=== PATIENT | female | born 1945 | race Caucasian/White ===

== ENCOUNTER 2018-12-23 15:32 | Emergency (ER) | payer OTHER, MEDICARE ==
[~2018-12-23] VITALS: Ht 152.4 cm; Wt 63.6 kg
[2018-12-23 16:57] VITALS: BP 145/65
[2018-12-23] MEDS ORDERED: orphenadrine citrate 60mg/2ml inj. IM ONE (18:30)
[2018-12-23] MEDS ORDERED: ketorolac tromethamine 15mg/ml inj. IM ONE (18:30)
[2018-12-23] MEDS ORDERED: METH-360 PO (19:01)
[2018-12-23] MEDS ORDERED: IBUP-1985 PO (19:01)
== END 2018-12-23 19:33 | disposition home or self-care (01) ==
LOC: ER 15:32 → EDBD 15:32 → ER 19:33
DX: M54.32 Sciatica, left side (principal); Z79.899 Other long term (current) drug therapy
CPT/HCPCS: 96372; 99284; J1885; J2360

== ENCOUNTER 2019-05-26 12:48 | Emergency (ER) | payer OTHER, MEDICARE ==
[~2019-05-26] VITALS: Ht 152.4 cm; Wt 55.9 kg
[~2019-05-26 12:48] MED LIST: IBUP-1985 PO; METH-360 PO
[2019-05-26] MEDS ORDERED: aspirin/acetaminophen/caffeine tablet PO ONE (13:35)
[2019-05-26 13:52] VITALS: BP 142/83
== END 2019-05-26 14:08 | disposition home or self-care (01) ==
LOC: ER 12:48
DX: R51 Headache (principal); R42 Dizziness and giddiness; Z99.81 Dependence on supplemental oxygen; Z98.890 Other specified postprocedural states; Z88.0 Allergy status to penicillin; Z88.2 Allergy status to sulfonamides; Z79.899 Other long term (current) drug therapy
CPT/HCPCS: 99283